=== PATIENT | male | born 1975 | race Caucasian/White ===

== ENCOUNTER 2017-12-27 21:08 | Emergency (ER) | payer OTHER ==
[~2017-12-27] VITALS: Ht 177.8 cm; Wt 99.8 kg
--- NOTE | 2017-12-27 21:25 | NUR ---
admitted to [id number] ambulatory c/o l chest pain scale of 8/10. ekg done. attached to cardiac cath tech shows sr no ectopy. dr cordoba will see pt.
[2017-12-27] MEDS ORDERED: PRILOSEC (21:32)
[2017-12-27] MEDS ORDERED: KLONOPIN (21:32)
[2017-12-27] MEDS ORDERED: CELEXA (21:32)
[2017-12-27] MEDS ORDERED: HYDROMORPHONE 1 MG/1 ML DISP.SYRIN IV ONE (21:45)
[2017-12-27] MEDS ORDERED: ONDANSETRON 4 MG/2 ML VIAL IV ONE (21:45)
[2017-12-27] MEDS ORDERED: CLONAZEPAM 0.5 MG TABLET PO ONE (21:45)
[2017-12-27] MEDS ORDERED: IV NORMAL SALINE 1000 ML BAG IV ONE (21:45)
[2017-12-27] MEDS ORDERED: ASPIRIN 81 MG TAB.CHEW PO ONE (21:45)
[2017-12-27 22:01] LABS: BASOPHILS # (AUTO) 0.1 K/uL (0.0-8.0); BASOPHILS % (AUTO) 0.9 % (0.0-2.0); EOSINOPHILS # (AUTO) 0.1 K/uL (0.0-0.7); EOSINOPHILS % (AUTO) 1.5 % (0.0-7.0); HEMATOCRIT 40.7 % (36.7-47.1); HEMOGLOBIN 13.5 g/dL (12.5-16.3); LYMPHOCYTES # (AUTO) 1.9 K/uL (20.0-40.0); LYMPHOCYTES % (AUTO) 24.2 % (20.5-51.5); MEAN CORPUSCULAR HEMOGLOBIN 26.4 uug (23.8-33.4); MEAN CORPUSCULAR HGB CONC 33 g/dL (32.5-36.3); MEAN CORPUSCULAR VOLUME 79.5 fL (73.0-96.2); MONOCYTES # (AUTO) 0.6 K/uL (2.0-10.0); MONOCYTES % (AUTO) 8.2 % (0.0-11.0); NEUTROPHILS # (AUTO) 5.1 K/uL (1.8-8.9); NEUTROPHILS % (AUTO) 65.2 % (38.5-71.5); PLATELET COUNT (AUTO) 230 K/uL (152-348); RED BLOOD CELL COUNT(AUTO) 5.12 MIL/uL (4.06-5.63); WHITE BLOOD COUNT (AUTO) 7.9 K/uL (3.6-10.2)
[2017-12-27] MEDS ORDERED: ASPIRIN 81 MG TAB.CHEW ONE (22:02)
[2017-12-27] MEDS ORDERED: ONDANSETRON 4 MG/2 ML VIAL ONE (22:02)
[2017-12-27] MEDS ORDERED: HYDROMORPHONE 1 MG/1 ML DISP.SYRIN ONE (22:02)
[2017-12-27] MEDS ORDERED: CLONAZEPAM 1 MG TABLET ONE (22:04)
[2017-12-27 22:07] LABS: CARBON DIOXIDE 25 mmol/L (21-32); CHLORIDE 104 mmol/L (98-107); CREATININE 0.9 mg/dL (0.6-1.3); GLUCOSE 130 mg/dL (74-106); POTASSIUM 3.8 mmol/L (3.5-5.1); UREA NITROGEN, BLOOD 9 mg/dL (7-18)
[2017-12-27 22:19] LABS: ALANINE AMINOTRANSFERASE 142 U/L (16-63); ALKALINE PHOSPHATASE 77 U/L (50-136); ASPARTATE AMINOTRANSFERASE 43 U/L (15-37); BILIRUBIN,DIRECT < 0.1 mg/dL (0.0-0.2); BILIRUBIN,TOTAL 0.2 mg/dL (0.2-1.0); LIPASE 344 U/L (73-393); TOTAL PROTEIN, SERUM 6.7 g/dL (6.4-8.2)
[2017-12-27] MEDS ORDERED: HYDROCODONE/APAP 10-325 MG TABLET ONE (22:34)
--- NOTE | 2017-12-27 22:39 | NUR ---
pt. chest pain remains at a scale of 6/10 after dilaudid 1mg ivp given, dr cordoba aware & norco 10 1 tab given po as ordered.v/s stable.
[2017-12-27] MEDS ORDERED: HYDROCODONE/APAP 10-325 MG TABLET PO ONE (22:45)
--- NOTE | 2017-12-27 22:49 | NUR ---
pt. to xray for ct scan of abd./pelvis via w/c.
--- NOTE | 2017-12-28 00:18 | NUR ---
resting quitely. v/s stable.
[2017-12-28 01:42] VITALS: BP 107/65
--- NOTE | 2017-12-28 01:43 | NUR ---
Patient discharged to home in stable conditon & under the care of his mother. Written and verbal after care instructions given. Patient verbalizes understanding of instructions.
== END 2017-12-28 01:45 | disposition home or self-care (01) ==
LOC: ER 21:10
DX: R07.89 Other chest pain (principal); R10.32 Left lower quadrant pain; Z90.49 Acquired absence of other specified parts of digestive tract; Z88.8 Allergy status to other drugs, medicaments and biological substances
CPT/HCPCS: 36415; 70030-TC; 71045; 83690; 85025; 93005; A4663; J1170; J2405; J7030

== ENCOUNTER 2018-01-11 19:55 | Emergency (ER) | payer OTHER ==
[~2018-01-11] VITALS: Ht 177.8 cm; Wt 97.5 kg
[~2018-01-11 19:55] MED LIST: CELEXA; KLONOPIN; PRILOSEC
--- NOTE | 2018-01-11 20:16 | NUR ---
PT A/OX4, RESPONSIVE TO VERBAL AND TACTILE STIMULI. PT C/O C/P THAT STARTED 4 HOURS AGO, NO PROVOKING FACTOR, DOES NOT RADIATE, 10/20, CONSTANT. PT STATES HE WAS SITTING AT HOME WHEN THE C/P STARTED. VSS. AWAITING TO BE SEEN BY MD. PT DENIES SOB, N/V/D.
[2018-01-11 20:47] LABS: BASOPHILS # (AUTO) 0.1 K/uL (0.0-8.0); BASOPHILS % (AUTO) 1.3 % (0.0-2.0); EOSINOPHILS # (AUTO) 0.1 K/uL (0.0-0.7); EOSINOPHILS % (AUTO) 1.3 % (0.0-7.0); HEMATOCRIT 39.3 % (36.7-47.1); HEMOGLOBIN 13.2 g/dL (12.5-16.3); LYMPHOCYTES # (AUTO) 1.8 K/uL (20.0-40.0); LYMPHOCYTES % (AUTO) 23.2 % (20.5-51.5); MEAN CORPUSCULAR HEMOGLOBIN 27.1 uug (23.8-33.4); MEAN CORPUSCULAR HGB CONC 34 g/dL (32.5-36.3); MEAN CORPUSCULAR VOLUME 80.7 fL (73.0-96.2); MONOCYTES # (AUTO) 0.8 K/uL (2.0-10.0); MONOCYTES % (AUTO) 10.6 % (0.0-11.0); NEUTROPHILS # (AUTO) 4.8 K/uL (1.8-8.9); NEUTROPHILS % (AUTO) 63.6 % (38.5-71.5); PLATELET COUNT (AUTO) 208 K/uL (152-348); RED BLOOD CELL COUNT(AUTO) 4.87 MIL/uL (4.06-5.63); WHITE BLOOD COUNT (AUTO) 7.5 K/uL (3.6-10.2)
[2018-01-11 20:59] LABS: BILIRUBIN,DIRECT 0.1 mg/dL (0.0-0.2); BILIRUBIN,TOTAL 0.2 mg/dL (0.2-1.0); TOTAL PROTEIN, SERUM 6.7 g/dL (6.4-8.2)
--- NOTE | 2018-01-11 21:31 | NUR ---
ER AT BEDSIDE
[2018-01-11] MEDS ORDERED: KETOROLAC TROMETHAMINE 15 MG INJ ONE (21:42)
[2018-01-11] MEDS ORDERED: KETOROLAC TROMETHAMINE 15 MG INJ IVP ONE (21:45)
[2018-01-11] MEDS ORDERED: IV NORMAL SALINE 1000 ML BAG IV ONE (21:45)
[2018-01-11 22:01] LABS: MAGNESIUM 2.1 mg/dL (1.8-2.4)
[2018-01-11] MEDS ORDERED: ONDANSETRON 4 MG/2 ML VIAL ONE (22:03)
[2018-01-11] MEDS ORDERED: ONDANSETRON IV *ER 4 MG/2 ML VIAL IV ONE (22:15)
--- NOTE | 2018-01-12 03:43 | NUR ---
[employer]ELOPER AT BEDSIDE FOR LAB DRAW.
[2018-01-12] MEDS ORDERED: OMEP20TA20 PO (04:25)
[2018-01-12] MEDS ORDERED: OLAN20TA3 PO (04:25)
[2018-01-12] MEDS ORDERED: CLON0.5T PO (04:25)
[2018-01-12] MEDS ORDERED: CITA40TA22 PO (04:25)
[2018-01-12] MEDS ORDERED: GABA400C PO (04:25)
--- NOTE | 2018-01-12 04:25 | NUR ---
JAZ ALMANZA ON PHONE WITH DR. KUMAR.
--- NOTE | 2018-01-12 04:30 | NUR ---
JAZ ALMANZA AT BEDSIDE FOR PT UPDATE.
[2018-01-12] MEDS ORDERED: KETOROLAC TROMETHAMINE 30 MG INJ ONE (04:41)
[2018-01-12] MEDS ORDERED: KETOROLAC TROMETHAMINE 30 MG INJ IVP ONE (04:45)
--- NOTE | 2018-01-12 07:13 | NUR ---
Patient discharged to home in stable conditon. Written and verbal after care instructions given. Patient verbalizes understanding of instructions. PT SELF-AMBULATED WITHOUT DIFFICULTY. VSS. ALL BELONGINGS TAKEN WITH PT.
[2018-01-12 07:14] VITALS: BP 112/72
== END 2018-01-12 07:15 | disposition home or self-care (01) ==
LOC: ER 19:55
DX: R07.89 Other chest pain (principal); G89.29 Other chronic pain; R10.9 Unspecified abdominal pain; Z90.49 Acquired absence of other specified parts of digestive tract; Z88.8 Allergy status to other drugs, medicaments and biological substances
CPT/HCPCS: 36415; 70030-TC; 71045; 83690; 83735; 85025; 85730; 93005; A4663; J1885; J2405; J7030